=== PATIENT | male | born 1955 | race Caucasian/White ===

== ENCOUNTER 2016-03-30 12:09 | Emergency (ER) | payer BC ==
[2016-03-30 12:47] VITALS: BP 154/85
--- NOTE | 2016-03-30 14:44 | UC ---
Back Pain HPI - HPI Summary HPI Summary: "This goes on once and a while. My muscles get all messed up. I was shovelling and I got all crippled up." Bilateral lower back pain and stiffness since shovelling yesterday morning. Similar previous episodes relieved with Flexeril. Patient is a route contractor. PCP Krista. He denies any w/n/t going into his legs. no loss of bowel/bladder function. no pain goes into legs. stays at b/l low back. Declines xrays today. uncertain if he has had xrays of low back in past. - History of Current Complaint Chief Complaint: UCBackPain Stated Complaint: BACK PAIN Time Seen by Provider: 03/30/16 14:35 - Allergies/Home Medications Allergies/Adverse Reactions: Allergies Allergy/AdvReac Type Severity Reaction Status Date / Time No Known Allergies Allergy Verified 03/04/15 17:07 Home Medications: Home Medications Ibuprofen TAB* [Advil TAB*] 200 mg PO Q6H PRN 03/30/16 [History Confirmed ] PMH/Surg Hx/FS Hx/Imm Hx Previously Healthy: Yes - Surgical History Surgical History: None - Family History Known Family History: Positive: Hypertension - Social History Alcohol Use: Occasionally Substance Use Type: None Smoking Status (MU): Never Smoked Tobacco Review of Systems Constitutional: Negative Skin: Negative Eyes: Negative ENT: Negative Respiratory: Negative Cardiovascular: Negative Gastrointestinal: Negative Genitourinary: Negative Motor: Negative Neurovascular: Negative Musculoskeletal: Decreased ROM Neurological: Negative Psychological: Negative All Other Systems Reviewed And Are Negative: Yes Physical Exam Triage Information Reviewed: Yes Appearance: Well-Appearing, Well-Nourished, Pain Distress - sitting awkwardly in chair, moves slowly. smiling and pleasant. Vital Signs: Initial Vital Signs Temp 97.4 F 03/30/16 12:42 Pulse 58 03/30/16 12:42 Resp 16 03/30/16 12:42 BP 154/85 03/30/16 12:42 Pulse Ox 99 03/30/16 12:42 Vital Signs Reviewed: Yes Eye Exam: Normal ENT Exam: Normal Neck exam: Normal Respiratory Exam: Normal Respiratory: Positive: Lungs clear, Normal breath sounds Cardiovascular Exam: Normal Cardiovascular: Positive: RRR, No Murmur, Pulses Normal, Brisk Capillary Refill Abdominal Exam: Normal Abdomen Description: Positive: Nontender, Soft. Negative: CVA Tenderness (R), CVA Tenderness (L) Musculoskeletal: Positive: Other: - tender with b/l low back spasms that reproduce pain. difficult to flex, extend and twist b/l. Neg SLR b/l. + 2 patellar b/l. strength 5/5 b/l. Neurological Exam: Normal Psychological Exam: Normal Skin Exam: Normal Back Pain Course/Dx - Course Course Of Treatment: His drove him today and he will not be driving after we have him 10mgs felxiril here. ISTOP checked without any activity. - Differential Dx/Diagnosis Differential Diagnosis/HQI/PQRI: Herniated Disc, Strain, Sprain Provider Diagnoses: Low back strain Discharge - Discharge Plan Condition: Stable Disposition: HOME Prescriptions: Cyclobenzaprine TAB* [Flexeril TAB*] 10 mg PO BID PRN #14 tab PRN Reason: Pain Patient Education Materials: Low Back Strain (ED) Referrals: Rolando Velasco DO [Primary Care Provider] - 3 Days Additional Instructions: No driving with cyclobenzaprine. Consider getting xrays done, especially if symptoms persist.
[2016-03-30] MEDS ORDERED: Cyclobenzaprine TAB* 10 MG PO ONE (14:49)
== END 2016-03-30 15:01 | disposition home or self-care (01) ==
LOC: UCCORT 12:09
DX: S39.012A Strain of muscle, fascia and tendon of lower back, initial encounter (principal); X50.9XXA Other and unspecified overexertion or strenuous movements or postures, initial encounter; Y93.H1 Activity, digging, shoveling and raking; Y92.9 Unspecified place or not applicable
CPT/HCPCS: 99212; A9270-GY; G0463